=== PATIENT | male | born 1965 | race Caucasian/White ===

== ENCOUNTER 2018-09-18 11:06 | Outpatient (CLI) | payer BC, SELFPAY ==
--- NOTE | 2018-09-18 10:30 | DI.RAD_ITS ---
SYMPTOMS/DIAGNOSIS: RT HIP PAIN, ARTHRALGIA, M25.559 RIGHT HIP AND AP PELVIS: Three views. No priors. In the right hip, mild subchondral sclerosis is seen. There may be mild joint space narrowing present. The joint is otherwise well maintained. The bones are intact and normally mineralized. Surgical clips are seen overlying the right femoral head. The soft tissues are otherwise unremarkable. The sacroiliac joints and symphysis pubis have a normal appearance. Surgical clips are seen inferior to the pelvis, likely reflecting prior vasectomy. IMPRESSION: No acute abnormality. Minimal degenerative changes of the right hip.
== END 2018-09-18 11:26 ==
PROVIDERS: PCP Emergency Medicine; Visit Provider Emergency Medicine
DX: M25.551 Pain in right hip (principal); M16.11 Unilateral primary osteoarthritis, right hip
CPT/HCPCS: 73502

== ENCOUNTER 2022-07-01 01:26 | Outpatient (CLI) | payer BC, SELFPAY ==
[2022-07-01 12:45] LABS: Calculated LDL 43 mg/dL (<100); Cholesterol 99 mg/dL (<200); Estimated GFR 87.78 (mL/min/1.73m2); HDL Cholesterol 39 mg/dL (40-60); Potassium 3.9 mmol/L (3.5-5.1); Triglyceride 85 mg/dL (<150)
[2022-07-01 12:48] LABS: Hemoglobin A1C 5.1 % (<5.7)
== END 2022-07-01 01:27 | disposition home or self-care (01) ==
PROVIDERS: PCP Nurse Practitioner Family; Visit Provider Nurse Practitioner Family
DX: I10 Essential (primary) hypertension (principal); E78.5 Hyperlipidemia, unspecified; I25.2 Old myocardial infarction; Z13.1 Encounter for screening for diabetes mellitus
CPT/HCPCS: 36415; 80061; 82565; 83036; 84132

== ENCOUNTER 2024-07-12 01:23 | Outpatient (CLI) | payer BC, SELFPAY ==
[2024-07-12 12:34] LABS: Hemoglobin A1C 5.2 % (<5.7)
[2024-07-12 12:50] LABS: Calculated LDL 51 mg/dL (<100); Cholesterol 112 mg/dL (<200); HDL Cholesterol 45 mg/dL (40-60); Triglyceride 82 mg/dL (<150)
[2024-07-12 18:33] LABS: PSA, Screening 1.9 ng/mL (<=3.5)
== END 2024-07-12 01:24 | disposition home or self-care (01) ==
LOC: LOS 01:24
PROVIDERS: PCP Nurse Practitioner Family; Visit Provider Nurse Practitioner Family
DX: Z13.220 Encounter for screening for lipoid disorders (principal); Z13.1 Encounter for screening for diabetes mellitus; Z12.5 Encounter for screening for malignant neoplasm of prostate
CPT/HCPCS: 36415; 80061; 84153; 83036